=== PATIENT | male | born 1980 | race Caucasian/White ===

== ENCOUNTER 2020-08-24 14:05 | Emergency (ER) | payer BC ==
[2020-08-24 14:11] VITALS: BP 136/82; PULSE 84; RESP 20; TEMP 98.8
[2020-08-24] MEDS ORDERED: DEXAMETHASONE SOD PHOSPHATE 10 MG/ML 1 ML VIAL IM STA (15:27)
--- NOTE | 2020-08-24 15:47 | ED ---
ENT HPI - General Chief complaint: ENT Stated complaint: swollen gland Time Seen by Provider: 08/24/20 15:15 Source: patient, RN notes reviewed, old records reviewed Mode of arrival: ambulatory Limitations: no limitations - History of Present Illness Initial comments: Patient is a 40 year old male with CC of swollen left submandibular gland for the past day. He was evaluated today by urgent care and reports that he had IM antibiotics. Patient reports that he was having pain and dysphagia. He reports the swelling happened quickly, and denies fever. He denies trouble breathing. - Related Data Previous Rx's Medication Instructions Recorded methylPREDNISolone Dose Pack 4 mg PO DIRECTED #1 pack 08/24/20 [Medrol Dose Pack] methylPREDNISolone Dose Pack 4 mg PO DIRECTED #21 package 08/24/20 [Medrol Dose Pack] Allergies Allergy/AdvReac Type Severity Reaction Status Date / Time No Known Allergies Allergy Verified 08/24/20 14:11 Review of Systems ROS Statement: Those systems with pertinent positive or pertinent negative responses have been documented in the HPI. ROS Other: All systems not noted in ROS Statement are negative. Past Medical History Past Medical History: No Reported History History of Any Multi-Drug Resistant Organisms: None Reported Past Surgical History: Adenoidectomy Additional Past Surgical History / Comment(s): Hernia repair Past Psychological History: No Psychological Hx Reported Smoking Status: Current every day smoker Past Alcohol Use History: None Reported Past Drug Use History: None Reported General Exam - General Exam Comments Initial Comments: 40 year old male, no distress. Limitations: no limitations General appearance: alert Head exam: Present: atraumatic, normocephalic, normal inspection Eye exam: Present: normal appearance, PERRL, EOMI. Absent: scleral icterus, conjunctival injection, periorbital swelling ENT exam: Present: normal exam, mucous membranes moist Neck exam: Present: normal inspection, other (firm swollen left submandibular gland. ). Absent: tenderness, meningismus, lymphadenopathy Respiratory exam: Present: normal lung sounds bilaterally. Absent: respiratory distress, wheezes, rales, rhonchi, stridor Cardiovascular Exam: Present: regular rate, normal rhythm, normal heart sounds. Absent: systolic murmur, diastolic murmur, rubs, gallop, clicks GI/Abdominal exam: Present: soft, normal bowel sounds. Absent: distended, tenderness, guarding, rebound, rigid Neurological exam: Present: alert, oriented X3, CN II-XII intact Psychiatric exam: Present: normal affect, normal mood Skin exam: Present: warm, dry, intact, normal color. Absent: rash Course Vital Signs 08/24/20 14:07 Temperature 98.8 F Pulse Rate 84 Respiratory 20 Rate Blood Pressure 136/82 O2 Sat by Pulse 98 Oximetry Medical Decision Making - Medical Decision Making 40 year old male presents today for reevaluation of swelling of submandibular gl and. At this time patient has no dysphonia, or dyspnea. He has evidence of sialadenitis. Discussed possible salivary stone causing the obstruction. Discussed using lemon drop candies and to take the earlier prescribbed antibiotic of doxycycline. Given IM decadron and advised return parameters and PCP follow up. Disposition Clinical Impression: Sialoadenitis of submandibular gland Disposition: HOME SELF-CARE Condition: Good Instructions (If sedation given, give patient instructions): Sialoadenitis (ED) Additional Instructions: start the steroid tomorrow. Continue antibiotic. Patient should suck on hard candies and lemon drops to help reduce more saliva. Prescriptions: methylPREDNISolone Dose Pack [Medrol Dose Pack] 4 mg PO DIRECTED #21 package methylPREDNISolone Dose Pack [Medrol Dose Pack] 4 mg PO DIRECTED #1 pack Is patient prescribed a controlled substance at d/c from ED?: No Referrals: None,Stated [Primary Care Provider] - 1-2 days Time of Disposition: 15:47
== END 2020-08-24 16:24 | disposition home or self-care (01) ==
LOC: EC 14:05
DX: K11.20 Sialoadenitis, unspecified (principal); F17.200 Nicotine dependence, unspecified, uncomplicated
CPT/HCPCS: 99282; 96372; J1100

== ENCOUNTER → 2020-08-28 | Outpatient (CLI) | payer BC ==
--- NOTE | 2020-08-28 17:05 | US ---
EXAMINATION TYPE: US thyroid st tissue head/neck DATE OF EXAM: 08/28/2020 COMPARISON: NONE CLINICAL HISTORY: R59.0 Localized enlarged lymph nodes. GLAND SIZE: Right Lobe: cm Overall Parenchyma: Left Lobe: cm Overall Parenchyma: Isthmus Thickness: cm NODULES RIGHT: # of nodules measured on right: 1. X x cm, , , nodule, which is , with margins, echogenic foci. Prior size: x x cm 2. X x cm, , , nodule, which is , with margins, echogenic foci. Prior size: x x cm 3. X x cm, , , nodule, which is , with margins, echogenic foci. Prior size: x x cm LEFT: # of nodules measured on left: 1. X x cm, , , nodule, which is , with margins, echogenic foci. Prior size: x x cm 2. X x cm, , , nodule, which is , with margins, echogenic foci. Prior size: x x cm 3. X x cm, , , nodule, which is , with margins, echogenic foci. Prior size: x x cm ISTHMUS: # of nodules measured in the isthmus: 1. X x cm , nodule, which is , with margins, echogenic foci. Prior size: x x cm Bilateral neck scanned, no evidence of lymphadenopathy. IMPRESSION: 2017 ACR TI-RADS LEVEL: *Highest TI-RADS level nodule reported EXAMINATION TYPE: US thyroid st tissue head/neck DATE OF EXAM: 08/28/2020 COMPARISON: NONE CLINICAL HISTORY: R59.0 Localized enlarged lymph nodes. Patient feels area of swelling left neck unde r jawline. On steroids and antibiotics and claims swelling has gone down. MEASUREMENTS: GLAND SIZE: Right Lobe: 5.1 x 1.6 x 1.3 cm Left Lobe: 5.3 x 2.1 x 1.5 cm Isthmus Thickness: 0.3 NODULES RIGHT: # of nodules measured on right: 0 LEFT: # of nodules measured on left: 0 ISTHMUS: # of nodules measured within isthmus: 0 Bilateral lymphadenopathy is present. Left neck shows ? lymph node = 2.6 x 1.0 x 0.7 cm Area of palpable swelling = 3.2 x 1.6 x 1.4 cm IMPRESSION: 1. Normal thyroid ultrasound. 2. Prominent adenopathy present bilaterally. Consider soft tissue neck with contrast CT for additiona l evaluation. Consider lymphoma.
== END | disposition home or self-care (01) ==
LOC: RADUSWWP 13:23
PROVIDERS: ATTEND Family Medicine
DX: R59.0 Localized enlarged lymph nodes (principal); E04.2 Nontoxic multinodular goiter
CPT/HCPCS: 76536

== ENCOUNTER → 2020-10-20 | Outpatient (CLI) | payer BC ==
--- NOTE | 2020-10-20 17:56 | US ---
EXAMINATION TYPE: US st tissue neck DATE OF EXAM: 10/20/2020 COMPARISON: NONE CLINICAL HISTORY: 40-year-old male R59.0 ENLARGED LYMPH NODES. Follow-up left neck lymph nodes. The p atient states area is not palpable at this time. TECHNIQUE: Multiple sonographic images along the left side of the neck at the site of patient's previ ous abnormality. FINDINGS: Multiple lymph nodes along the left neck side of the neck, largest measuring 2.2 x 1.1 x 0.6 cm. IMPRESSION: Scattered prominent but nonenlarged lymph nodes along the left side of the neck measuring up to 1.1 c m short axis versus 1.6 cm short axis, previously. The patient reports that the previous area is no l onger palpable. Further clinical follow-up as indicated.
== END | disposition home or self-care (01) ==
LOC: RADUSWWP 15:54
PROVIDERS: ATTEND Family Medicine
DX: R59.0 Localized enlarged lymph nodes (principal)
CPT/HCPCS: 76536

== ENCOUNTER → 2020-11-07 | Outpatient (CLI) | payer BC ==
--- NOTE | 2020-11-10 07:16 | CT ---
EXAMINATION TYPE: CT soft tissue neck wo con DATE OF EXAM: 11/07/2020 COMPARISON: None HISTORY: Cervical lymphadenopathy. Pt states swelling on LT side of neck x6 weeks CT DLP: 381.[address] of the neck was performed from the skull base through the lung apices. The lack of contrast limits evaluation. AIRWAY: The supraglottic, glottic, and subglottic portions of the airway appear patent and free of mass. SALIVARY GLANDS: The submandibular and parotid glands are free of mass or inflammatory process. THYROID GLAND: No nodules or masses seen. LYMPH NODES: Subcentimeter lymph nodes identified within the left neck internal jugular chain and pos terior to the left sternocleidomastoid musculature. LUNG APICES: No nodule or mass is seen. OTHER: Vascular structures are patent. No significant degenerative change of the cervical spine. N o abscess seen. IMPRESSION: Subcentimeter lymph nodes as noted.
== END | disposition home or self-care (01) ==
LOC: RADCTMAIN 16:13
PROVIDERS: ATTEND Family Medicine
DX: R59.0 Localized enlarged lymph nodes (principal)
CPT/HCPCS: 70490

== ENCOUNTER 2021-10-12 19:36 | Emergency (ER) | payer BC ==
[2021-10-12 19:42] VITALS: BP 145/81; PULSE 90; RESP 18; TEMP 98.2
--- NOTE | 2021-10-12 20:31 | ED ---
General Adult HPI - General Source: patient, family Mode of arrival: ambulatory Limitations: no limitations <LianeMarjoriemari Alves - Last Filed: 10/12/21 20:58> <Nicholas Beckham - Last Filed: 10/12/21 22:11> - General Chief complaint: Chest Pain Stated complaint: CHEST PAIN Time Seen by Provider: 10/12/21 20:15 - History of Present Illness Initial comments: Dictation was produced using HD[employer] dictation software. please excuse any grammatical, word or spelling errors. Chief Complaint: 41-year-old male presents to the emergency department for chest pain History of Present Illness: 41-year-old male denies any significant comorbidities. He states that he is here today for chest pain that started 12 hours ago. Patient denies any cardiac history. He states that he does have family history of coronary artery disease he states that the pain as sharp initially located at the left anterior chest however radiate to the right. States that it feels better whenever he ambulates. Patient denies any associated shortness of breath. No history of DVT or pulmonary embolism. Patient describes the pain as sharp. States that sometimes it feels worse when he takes a deep breath. The ROS documented in this emergency department record has been reviewed and confirmed by me. Those systems with pertinent positive or negative responses have been documented in the HPI. All other systems are other negative and/or noncontributory. PHYSICAL EXAM: General Impression: Alert and oriented x3, not in acute distress HEENT: Normocephalic atraumatic, extra-ocular movements intact, pupils equal and reactive to light bilaterally, mucous membranes moist. Cardiovascular: Tachycardic Chest: Able to complete full sentences, no retractions, no tachypnea, some diffuse wheezing Abdomen: abdomen soft, non-tender, non-distended, no organomegaly Musculoskeletal: Pulses present and equal in all extremities, no peripheral edema Motor: no focal deficits noted Neurological: CN II-XII grossly intact, no focal motor or sensory deficits noted Skin: Intact with no visualized rashes Psych: Normal affect and mood ED course: 41-year-old male presents to the emergency department for chest pain. His symptoms are atypical. Vital signs upon arrival shows heart rate of 90 however at the bedside he is in the low 100s. care signed out to Dr. Beckham. EKG interpretation: Ventricular rate 96, sinus rhythm,. Interval 140, care is 12, QTC 375. No OH prolongation, no QTC prolongation, there is appear to be hyperacute T waves in the septal precordial leads. No findings of ischemia or infarction. No old EKG for comparison. (Lionel Rob) - Related Data Previous Rx's Medication Instructions Recorded traMADol HCl [Ultram] 50 - 100 mg PO Q6H PRN #15 tab 10/12/21 Allergies Allergy/AdvReac Type Severity Reaction Status Date / Time No Known Allergies Allergy Verified 10/12/21 21:09 Review of Systems ROS Other: All systems not noted in ROS Statement are negative. <Lionel Rob - Last Filed: 10/12/21 20:58> ROS Other: All systems not noted in ROS Statement are negative. <Nicholas Beckham - Last Filed: 10/12/21 22:11> ROS Statement: Those systems with pertinent positive or pertinent negative responses have been documented in the HPI. Past Medical History Past Medical History: No Reported History History of Any Multi-Drug Resistant Organisms: None Reported Past Surgical History: Adenoidectomy Additional Past Surgical History / Comment(s): Hernia repair Past Psychological History: No Psychological Hx Reported Smoking Status: Current every day smoker Past Alcohol Use History: Occasional Past Drug Use History: None Reported <Lionel Rob - Last Filed: 10/12/21 20:58> General Exam Limitations: no limitations <Lionel Rob - Last Filed: 10/12/21 20:58> Course Vital Signs 10/12/21 19:41 Temperature 98.2 F Pulse Rate 90 Respiratory 18 Rate Blood Pressure 145/81 O2 Sat by Pulse 97 Oximetry Medical Decision Making - Lab Data Result diagrams: 10/12/21 20:32 10/12/21 20:32 <Nicholas Beckham - Last Filed: 10/12/21 22:11> - Medical Decision Making The patient initially was seen by previous shift and passed off to me for disposition. Upon my review, the patient relates similar to current history of present illness. He denies any recent fevers or chills. He denies any cough. He denies any recent known infections. There has been no chest trauma or injuries. He states that the pain is moderate in severity. He has never had any previous similar symptoms. There is a definite pleuritic component. It is a sharp pain that radiates to the right chest but does not radiate anywhere else. On exam, his lungs are clear to auscultation. The heart shows a regular rate and rhythm without murmur. There is no leg pain or swelling. All diagnostics are reviewed. The chest x-ray was read out per radiology is negative. It is also reviewed by myself in no acute processes identified. The cardiac profile labs are all essentially within normal limits except for a slight to moderate leukocytosis. The d-dimer is negative. The troponin is negative. The exact cause of his symptomatology is not definitively determined. The possibility of pleuritis is certainly plausible and fairly likely. The possibility of pericarditis is less likely. The white blood cell count is slightly elevated at 18,000 but there is otherwise no signs of pneumonia such as cough, fevers, chills, or respiratory distress. Overall, it is felt as though he is stable for discharge but return parameters are discussed in detail with patient and family. He is given Toradol and morphine for pain. Close follow-up is recommended. (Nicholas Beckham) - Lab Data Lab Results 10/12/21 10/12/21 10/12/21 Range/Units 20:32 20:32 20:32 WBC 18.0 H (3.8-10.6) k/uL RBC 5.51 (4.30-5.90) m/uL Hgb 16.5 (13.0-17.5) gm/dL Hct 52.2 (39.0-53.0) % MCV 94.8 (80.0-100.0) fL MCH 29.9 (25.0-35.0) pg MCHC 31.6 (31.0-37.0) g/dL RDW 13.7 (11.5-15.5) % Plt Count 486 H (150-450) k/uL MPV 7.3 Neutrophils % 74 % Lymphocytes % 16 % Monocytes % 7 % Eosinophils % 1 % Basophils % 1 % Neutrophils # 13.4 H (1.3-7.7) k/uL Lymphocytes # 2.8 (1.0-4.8) k/uL Monocytes # 1.3 H (0-1.0) k/uL Eosinophils # 0.2 (0-0.7) k/uL Basophils # 0.1 (0-0.2) k/uL PT 10.3 (9.0-12.0) sec INR 0.9 (<1.2) APTT 28.3 (22.0-30.0) sec D-Dimer 0.24 (<0.60) mg/L FEU Sodium 139 (137-145) mmol/L Potassium 3.9 (3.5-5.1) mmol/L Chloride 100 (98-107) mmol/L Carbon Dioxide 30 (22-30) mmol/L Anion Gap 9 mmol/L BUN 4 L (9-20) mg/dL Creatinine 0.85 (0.66-1.25) mg/dL Est GFR (CKD-EPI)AfAm >90 (>60 ml/min/1.73 sqM) Est GFR (CKD-EPI)NonAf >90 (>60 ml/min/1.73 sqM) Glucose 89 (74-99) mg/dL Calcium 10.0 (8.4-10.2) mg/dL Magnesium 2.0 (1.6-2.3) mg/dL Troponin I (0.000-0.034) ng/mL 10/12/21 Range/Units 20:32 WBC (3.8-10.6) k/uL RBC (4.30-5.90) m/uL Hgb (13.0-17.5) gm/dL Hct (39.0-53.0) % MCV (80.0-100.0) fL MCH (25.0-35.0) pg MCHC (31.0-37.0) g/dL RDW (11.5-15.5) % Plt Count (150-450) k/uL MPV Neutrophils % % Lymphocytes % % Monocytes % % Eosinophils % % Basophils % % Neutrophils # (1.3-7.7) k/uL Lymphocytes # (1.0-4.8) k/uL Monocytes # (0-1.0) k/uL Eosinophils # (0-0.7) k/uL Basophils # (0-0.2) k/uL PT (9.0-12.0) sec INR (<1.2) APTT (22.0-30.0) sec D-Dimer (<0.60) mg/L FEU Sodium (137-145) mmol/L Potassium (3.5-5.1) mmol/L Chloride (98-107) mmol/L Carbon Dioxide (22-30) mmol/L Anion Gap mmol/L BUN (9-20) mg/dL Creatinine (0.66-1.25) mg/dL Est GFR (CKD-EPI)AfAm (>60 ml/min/1.73 sqM) Est GFR (CKD-EPI)NonAf (>60 ml/min/1.73 sqM) Glucose (74-99) mg/dL Calcium (8.4-10.2) mg/dL Magnesium (1.6-2.3) mg/dL Troponin I <0.012 (0.000-0.034) ng/mL Disposition <Lionel Rob - Last Filed: 10/12/21 20:58> Is patient prescribed a controlled substance at d/c from ED?: Yes If prescribed controlled substance>3 days was MAPS reviewed?: Prescribed <3 Days Time of Disposition: 22:09 <Nicholas Beckham - Last Filed: 10/12/21 22:11> Clinical Impression: Pleuritic chest pain Disposition: HOME SELF-CARE Condition: Good Instructions (If sedation given, give patient instructions): Chest Pain (ED), Pleurisy (ED) Prescriptions: traMADol HCl [Ultram] 50 - 100 mg PO Q6H PRN #15 tab PRN Reason: Pain Referrals: None,Stated [Primary Care Provider] - 1-2 days
[2021-10-12 21:00] LABS: Basophils # (A) 0.1 k/uL (0-0.2); Basophils % (A) 1 %; Eosinophils # (A) 0.2 k/uL (0-0.7); Eosinophils % (A) 1 %; HCT 52.2 % (39.0-53.0); HGB 16.5 gm/dL (13.0-17.5); Lymphocytes # (A) 2.8 k/uL (1.0-4.8); Lymphocytes % (A) 16 %; MCH 29.9 pg (25.0-35.0); MCHC 31.6 g/dL (31.0-37.0); MCV 94.8 fL (80.0-100.0); Mean Platelet Volume 7.3; Monocytes # (A) 1.3 k/uL (0-1.0); Monocytes % (A) 7 %; Neutrophils # (A) 13.4 k/uL (1.3-7.7); Neutrophils % (A) 74 %; Platelet Count 486 k/uL (150-450); RBC 5.51 m/uL (4.30-5.90); RDW 13.7 % (11.5-15.5)
[2021-10-12 21:11] LABS: African American GFR (CKD) >90 (>60 ml/min/1.73 sqM); Anion Gap 9 mmol/L; Blood Urea Nitrogen 4 mg/dL (9-20); Carbon Dioxide 30 mmol/L (22-30); Chloride 100 mmol/L (98-107); Glucose 89 mg/dL (74-99); Non-African American GFR(CKD) >90 (>60 ml/min/1.73 sqM); Potassium 3.9 mmol/L (3.5-5.1); Sodium 139 mmol/L (137-145)
[2021-10-12 21:15] LABS: INR 0.9 (<1.2); Partial Thromboplastin Time 28.3 sec (22.0-30.0); Prothrombin Time 10.3 sec (9.0-12.0)
--- NOTE | 2021-10-12 21:54 | XR ---
EXAMINATION TYPE: XR chest 2V DATE OF EXAM: 10/12/2021 9:48 PM COMPARISON: None TECHNIQUE: XR chest 2V Frontal and lateral views of the chest. CLINICAL INDICATION:Male, 41 years old with history of chest pain; FINDINGS: Lungs/Pleura: There is no evidence of pleural effusion, focal consolidation, or pneumothorax. Pulmonary vascularity: Unremarkable. Heart/mediastinum: Cardiomediastinal silhouette is unremarkable. Musculoskeletal: No acute osseous pathology. IMPRESSION: No acute cardiopulmonary disease/process.
[2021-10-12] MEDS ORDERED: KETOROLAC 15 MG/ML 1 ML VIAL IVP STA (22:02)
[2021-10-12] MEDS ORDERED: MORPHINE SULFATE 2 MG/ML SYRINGE IVP STA (22:03)
== END 2021-10-12 23:03 | disposition home or self-care (01) ==
LOC: EC 19:36
DX: R07.81 Pleurodynia (principal); F17.200 Nicotine dependence, unspecified, uncomplicated
CPT/HCPCS: 36415; 85379; 80048; 83735; 84484; 85025; 85610; 85730; 71046; 99285; 96374; 96375; J2270; J1885